=== PATIENT | male | born 1980 | race Caucasian/White ===

== ENCOUNTER 2018-01-20 21:19 | Emergency (ER) | payer SELFPAY ==
[2018-01-20 22:02] LABS: Bilirubin Negative (Negative); Blood, Urine Negative (Negative); Clarity CLEAR (Clear); Glucose, Urine (Dipstick) Negative (Negative); Leukocyte Negative (Negative); Nitrite Negative (Negative); Protein, Urine (Dipstick) Negative (Neg-Trace); Specific Gravity, Urine 1.003 (1.002-1.036); Urobilinogen 0.2 mg/dL (0.2-1.0); pH, Urine 6.5 (5.0-9.0)
[2018-01-20 22:40] LABS: #Basophils 0.1 thou/uL (0.0-0.2); #Eosinphils 0.2 thou/uL (0.0-0.7); #Lymphocytes 1.8 thou/uL (1.20-3.40); #Monocytes 0.4 thou/uL (0.11-0.59); #Neutrophils 1.9 thou/uL (1.40-6.50); %Basophils 2.3 % (0.0-1.0); %Eosinophils 3.7 % (0.0-10.0); %Lymphocytes 41.8 % (21.0-51.0); %Neutrophils 44.2 % (42.0-75.0); Hemoglobin 15.2 g/dL (14.0-18.0); Mean Corpuscular HGB CONC 34.4 g/dL (32.0-36.0); Mean Corpuscular Hemoglobin 31.5 pg (27.0-31.0); Mean Corpuscular Volume 91.5 fL (78.0-98.0); Mean Platelet Volume 7.2 fL (7.4-10.4); Platelet Count 192 thou/uL (130-400); RBC Distribution Width 11.7 % (11.5-14.5); Red Blood Cell (RBC) Count 4.82 mill/uL (4.70-6.10); White Blood Cell (WBC) Count 4.3 thou/uL (4.8-10.8)
[2018-01-20 23:01] LABS: ALT (SGPT) 140 U/L (8-55); AST (SGOT) 119 U/L (5-34); Albumin 4.9 g/dL (3.5-5.0); Alkaline Phosphatase 105 U/L (40-150); Anion Gap 17 mmol/L (10-20); BUN (Urea Nitrogen) 8 mg/dL (8.9-20.6); Bilirubin, Total 0.8 mg/dL (0.2-1.2); Calc. Creatinine Clearance 0 mL/min (70-130); Calcium 9.3 mg/dL (7.8-10.44); Carbon Dioxide 22 mmol/L (22-29); Chloride 104 mmol/L (98-107); Estimated GFR-MDRD Greater than 90; Globulin 3.3 g/dL (2.4-3.5); Glucose 92 mg/dL (70-105); Protein, Total 8.2 g/dL (6.0-8.3); Sodium 139 mmol/L (136-145)
== END 2018-01-20 23:12 | disposition left against medical advice (07) ==
LOC: ERS 21:19
DX: Z53.21 Procedure and treatment not carried out due to patient leaving prior to being seen by health care provider (principal)
CPT/HCPCS: 36415; 80053; 81003; 85025

== ENCOUNTER 2019-11-28 22:29 | Inpatient (IN) | payer SELFPAY ==
[~2019-11-28 22:29] MED LIST: Iopamidol-370 76% 500 ML 1 ML ONE
[2019-11-28] MEDS ORDERED: Morphine 4 MG/ML VIAL ONE (22:46)
[2019-11-28] MEDS ORDERED: Ondansetron PF 4 MG/2 ML Vial ONE (22:46)
[2019-11-28 23:00] LABS: #Basophils 0.1 thou/uL (0.0-0.2); #Lymphocytes 2.4 thou/uL (1.20-3.40); #Monocytes 0.4 thou/uL (0.11-0.59); #Neutrophils 3.9 thou/uL (1.40-6.50); %Basophils 1.8 % (0.0-1.0); %Eosinophils 0.2 % (0.0-10.0); %Lymphocytes 34.6 % (21.0-51.0); %Monocytes 6.1 % (0.0-10.0); %Neutrophils 57.3 % (42.0-75.0); Hemoglobin 16.7 g/dL (14.0-18.0); Mean Corpuscular HGB CONC 36.4 g/dL (32.0-36.0); Mean Corpuscular Volume 85.1 fL (78.0-98.0); Mean Platelet Volume 10.8 fL (7.4-10.4); Platelet Count 149 thou/uL (130-400); RBC Distribution Width 15.9 % (11.5-14.5); Red Blood Cell (RBC) Count 5.38 mill/uL (4.70-6.10); White Blood Cell (WBC) Count 6.8 thou/uL (4.8-10.8)
[2019-11-28 23:19] LABS: Bilirubin Negative (Negative); Blood, Urine Negative (Negative); Clarity Clear (Clear); Glucose, Urine (Dipstick) Normal (Negative); Leukocyte Negative Leu/uL (Negative); Nitrite Negative (Negative); Protein, Urine (Dipstick) Negative (Neg-Trace); Urobilinogen Normal mg/dL (Less than 2)
[2019-11-29] MEDS ORDERED: Morphine 4 MG/ML VIAL ONE (01:09)
[2019-11-29] MEDS ORDERED: Ondansetron ODT 4 MG TAB SL PRN (02:42)
[2019-11-29] MEDS ORDERED: Morphine 2 MG/ML SYRINGE SLOW IVP PRN (02:42)
[2019-11-29] MEDS ORDERED: Ondansetron PF 4 MG/2 ML Vial IVP PRN (02:42)
[2019-11-29] MEDS ORDERED: Sodium Chloride 0.9% 1,000 ML IV SCH ×2 (02:42→03:30)
[2019-11-29] MEDS: Morphine 4 MG/ML VIAL SLOW IVP PRN ×2 (02:58→07:42)
[2019-11-29] MEDS: Sodium Chloride 0.9% 1,000 ML IV SCH ×5 (03:15→23:59)
--- NOTE | 2019-11-29 03:37 | PDOC.HHP ---
Hospitalist HPI - History of Present Illness abdominal pain with nausea and vomiting History of Present Illness: 39M presents to the ED for evaluation of upper abdominal pain with n/v x3 days. Reports drinking 4-6 cans of beer per day since he was 16. Reports history of pancreatitis one other time. Symptoms are similar today for past episode. Denies other past medical history, denies taking medication for any chronic health issues. ED Course: Patient had blood work in the ED which hemolyzed multiple times. They were able to get a CBC but no lipase or comp met due to abundance of fat in the blood. Patient was given 2L of NS and morphine. CT scan of abd/pel was consistent with uncomplicated pancreatitis and he will be admitted to med/surg. Lab will redraw blood at 7am after more fluid given overnight. A stat lipid, glucose has been ordered in the meantime. Hospitalist ROS - Review of Systems Constitutional: denies: fever, chills, sweats, weakness, malaise, other Eyes: denies: pain, vision change, conjunctivae inflammation, eyelid inflammation, redness, other ENT: denies: ear pain, ear discharge, nose pain, nose discharge, nose congestion , mouth pain, mouth swelling, throat pain, throat swelling, other Respiratory: reports: cough Cardiovascular: denies: chest pain, palpitations, orthopnea, paroxysmal noc. dyspnea, edema, light headedness, other Gastrointestinal: reports: nausea, vomiting, abdominal pain Genitourinary: denies: dysuria, frequency, incontinence, hematuria, retention, other Musculoskeletal: denies: neck pain, shoulder pain, arm pain, back pain, hand pain, leg pain, foot pain, other Skin: denies: rash, lesions, kristin, bruising, other Neurological: denies: weakness, numbness, incoordination, change in speech, confusion, seizures, other - Medication Medications: Active Medications Generic Name Dose Route Start Last Admin Trade Name Freq PRN Reason Stop Dose Admin Morphine Sulfate 4 mg 11/29/19 02:42 11/29/19 02:58 Morphine SLOW IVP 11/29/19 13:16 4 mg Q4H PRN Administration Moderate to Severe Pain (6-10) Hospitalist History - Past Medical History Source: patient Cardiac: denies: no pertinent history, AFIB, CAD, CHF, HTN, MO, Syncope, Hyperlipidemia, Mitral valve stenosis, Aortic stenosis, Valve insufficiency, Pulmonary hypertension, Other Pulmonary: denies: no pertinent history, angina, asthma, bronchitis, CVA/TIA/ stroke, congestive heart failure, COPD, deep vein thrombosis, emphysema, heart attack, high cholesterol, HIV/AIDS, hypertension, lung disease, pneumonia, previously intubated, pulmonary embolism, Other FINANCE MANAGER: denies: no pertinent history, Carpal Tunnel Syndrome, CVA, Dementia, Migraine, Peripheral neuropathy, Seizure, TIA, Vertigo, Other Gastrointestinal: reports: Other (pancreatitis) Heme/Onc: denies: no pertinent history, Anemia NOS, B12 deficiency, Cancer, Hemochromatosis, Iron deficiency anemia, Sickle cell disease, Sickle cell trait , Other Psych: reports: Addictions Musculoskeletal: denies: no pertinent history, Chronic low back pain, Bursitis, Osteoarthritis, Other Rheumatologic: denies: no pertinent history, Fibromyalgia, Gout, Rheumatoid arthritis, Vasculitis, Other Infectious Disease: denies: no pertinent history, Bacterial vaginosis, [place], Gonorrhea, HIV, Human papilloma virus, Herpes simplex 1, Herpes simplex 2, Herpes zoster, Other ENT: denies: no pertinent history, Sinusitis, Allergic rhinitis, Other Renal/: denies: no pertinent history, Chronic renal insuff, Acute renal failure, Chronic renal failure, UTI, Benign prostatic enlarg., Hematuria, Other Endocrine: denies: no pertinent history, Diabetes, Hyperthyroidism, Hypothyroidism, Hyperparathyroidism, Osteopenia, Osteoporosis, Other Dermatology: denies: no pertinent history, Eczema, Cellulitis, Psoriasis, Melanoma, Basal cell, Squamous cell, Other - Past Surgical History Past Surgical History: reports: Other (knee surgery and finger surgery) - Family History Family History: reports: no pertinent history - Social History Smoking Status: Smokes 0-10 cigs daily Alcohol: reports: Heavy Drugs: reports: none Living Situation: With Family Activity level: independent ambulation - Exam General Appearance: awake alert Eye: PERRL, anicteric sclera ENT: normocephalic atraumatic, moist mucosa Neck: supple, symmetric Heart: RRR, no murmur Respiratory: CTAB, normal chest expansion Gastrointestinal: normal bowel sounds, tender to palpation, voluntary guarding Extremities: negative: no cyanosis, no clubbing, no edema, 1+ LE edema, 2+ LE edema, clubbing Skin: normal turgor Neurological: cranial nerve grossly intact Musculoskeletal: normal tone Psychiatric: normal affect, A&O x 3 Hospitalist Results - Labs Result Diagrams: 11/28/19 22:24 11/28/19 23:52 Lab results: WBC 6.8 thou/uL (4.8-10.8) 11/28/19 22:24 Hgb 16.7 g/dL (14.0-18.0) 11/28/19 22:24 Hct 45.7 % (42.0-52.0) 11/28/19 22:24 MCV 85.1 fL (78.0-98.0) 11/28/19 22:24 Plt Count 149 thou/uL (130-400) 11/28/19 22:24 Neutrophils % 57.3 % (42.0-75.0) 11/28/19 22:24 Sodium Cancelled 11/28/19 23:52 Potassium Cancelled 11/28/19 23:52 Chloride Cancelled 11/28/19 23:52 Carbon Dioxide Cancelled 11/28/19 23:52 BUN Cancelled 11/28/19 23:52 Creatinine Cancelled 11/28/19 23:52 Glucose Cancelled 11/28/19 23:52 Calcium Cancelled 11/28/19 23:52 Total Bilirubin Cancelled 11/28/19 23:52 AST Cancelled 11/28/19 23:52 ALT Cancelled 11/28/19 23:52 Alkaline Phosphatase Cancelled 11/28/19 23:52 Serum Total Protein Cancelled 11/28/19 23:52 Albumin Cancelled 11/28/19 23:52 Lipase Cancelled 11/28/19 23:52 Urine Ketones Negative mg/dL (Negative) 11/28/19 23:08 Urine Blood Negative (Negative) 11/28/19 23:08 Urine Nitrite Negative (Negative) 11/28/19 23:08 Ur Leukocyte Esterase Negative Thu/uL (Negative) 11/28/19 23:08 Hospitalist H&P A/P - Problem (1) Pancreatitis, alcoholic, acute Code(s): K85.20 - ALCOHOL INDUCED ACUTE PANCREATITIS WITHOUT NECROSIS OR INFCT Status: Acute (2) Fatty liver Code(s): K76.0 - FATTY (CHANGE OF) LIVER, NOT ELSEWHERE CLASSIFIED Status: Chronic (3) Alcohol abuse Code(s): F10.10 - ALCOHOL ABUSE, UNCOMPLICATED Status: Chronic - Plan Plan: NS @250ml/hr; morphine as needed for pain Will attempt lab work again in several hours after more fluids Have ordered glucose and lipids NPO DVT and PUD prevention Repeat labs Case discussed with Dr. Aguiar who agrees with plan.
[2019-11-29] MEDS ORDERED: Diazepam 10 MG/2 ML SYRINGE IVP PRN (04:10)
[2019-11-29 05:23] LABS: #Basophils 0.1 thou/uL (0.0-0.2); #Lymphocytes 1.7 thou/uL (1.20-3.40); #Monocytes 0.5 thou/uL (0.11-0.59); #Neutrophils 5.3 thou/uL (1.40-6.50); %Basophils 1.7 % (0.0-1.0); %Eosinophils 0.4 % (0.0-10.0); %Lymphocytes 22.3 % (21.0-51.0); %Neutrophils 68.6 % (42.0-75.0); Mean Corpuscular HGB CONC 38.1 g/dL (32.0-36.0); Mean Corpuscular Hemoglobin 32.8 pg (27.0-31.0); Mean Corpuscular Volume 86.1 fL (78.0-98.0); Mean Platelet Volume 14.1 fL (7.4-10.4); Platelet Count 147 thou/uL (130-400); RBC Distribution Width 16.3 % (11.5-14.5); Red Blood Cell (RBC) Count 4.58 mill/uL (4.70-6.10); White Blood Cell (WBC) Count 7.7 thou/uL (4.8-10.8)
--- NOTE | 2019-11-29 06:20 | CT ---
CT ABDOMEN AND PELVIS: 11/28/2019 PROVIDED CLINICAL HISTORY: Abdominal pain. FINDINGS: The visualized lung bases are free of significant opacity. There is diffuse fatty infiltration of the liver. There is enlargement of the pancreatic tail with surrounding fat stranding and noncircumscribed fluid . There is no evidence for nonenhancing pancreatic tissue. No evidence for a focal fluid collection. The kidneys, spleen and adrenal glands appear unremarkable. There is no bowel dilatation, additional inflammatory fat stranding, free intraperitoneal fluid or fr ee intraperitoneal air apparent. The regional major vascular structures appear unremarkable. The osseous structures demonstrate no concerning lytic or blastic lesions. A bone island is seen invo lving the left iliac bone. IMPRESSION: 1. Findings compatible with acute uncomplicated pancreatitis. 2. Fatty infiltration of the liver. POS: CHET
[2019-11-29 06:50] VITALS: BMI 28.8
[2019-11-29] MEDS ORDERED: Fenofibrate Nanocrystallized 145 MG TAB PO SCH (09:30)
--- NOTE | 2019-11-29 09:48 | PDOC.HOSPP ---
- Subjective Encounter Date: 11/29/19 Subjective: The patient still complaining of severe abdominal pain that is localized to the epigastric region. Several attempts to obtain labs including venous and arterial blood were all hemolyzed due to the high content of the lipids. - Objective Vital Signs & Weight: Vital Signs (12 hours) Temp Pulse Resp BP BP Pulse Ox 11/29/19 07:30 98.9 F 70 12 114/65 97 11/29/19 04:05 98.8 F 70 18 124/80 97 11/29/19 02:30 97.7 F 95 18 126/93 H 126/93 H 97 Weight Weight 178 lb 9.191 oz I&O: 11/28/19 11/29/19 11/30/19 06:59 06:59 06:59 Intake Total 2000 1874 Balance 2000 1874 Result Diagrams: 11/29/19 04:55 11/28/19 23:52 Additional Labs: Accuchecks 11/29/19 07:34 POC Glucose 86 Hospitalist ROS - Medication Medications: Active Medications Generic Name Dose Route Start Last Admin Trade Name Marcioq PRN Reason Stop Dose Admin Sodium Chloride 1,000 mls @ 250 mls/hr 11/29/19 03:15 11/29/19 03:15 Normal Saline 0.9% IV 11/29/19 11:14 1,000 mls .Q4H YOLANDA Administration - Exam General Appearance: awake alert ENT: normocephalic atraumatic Neck: supple Heart: RRR Respiratory: normal chest expansion, no tachypnea Gastrointestinal: soft, non-distended, normal bowel sounds, tender to palpation Hosp A/P (1) Pancreatitis, alcoholic, acute Code(s): K85.20 - ALCOHOL INDUCED ACUTE PANCREATITIS WITHOUT NECROSIS OR INFCT Status: Acute (2) Alcohol abuse Code(s): F10.10 - ALCOHOL ABUSE, UNCOMPLICATED Status: Chronic (3) Fatty liver Code(s): K76.0 - FATTY (CHANGE OF) LIVER, NOT ELSEWHERE CLASSIFIED Status: Chronic - Plan Acute pancreatitis likely due to alcohol abuse and possible hyper triglyceridemia. Pancreatitis was seen on CT scan. Chemistry panel could not be obtained due to multiple hemolytic samples related to increased lipids in the blood. Continue IV hydration and administer banana bag. Diazepam as needed for CIWA score greater than 8. Consult gastroenterology. Clear liquid diet. Protonix IV for possible alcoholic gastritis.
[2019-11-29] MEDS ORDERED: Scopolamine 1.5 mg/72 hour Patch TD SCH (10:00)
[2019-11-29] MEDS: Famotidine/PF 20 mg/2ml Vial SLOW IVP SCH ×2 (10:14→19:32)
[2019-11-29] MEDS: Multivitamins, Adult 10 ML, Folic Acid 1 MG, Thiamine HCl 100 MG in Dextrose 5 %-0.45 %... IV SCH (10:15)
[2019-11-29] MEDS: Morphine 2 MG/ML SYRINGE SLOW IVP PRN ×3 (10:46→19:33)
--- NOTE | 2019-11-29 21:48 | CON ---
DATE OF CONSULTATION: 11/29/2019 REASON FOR CONSULTATION: Acute uncomplicated pancreatitis, hypertriglyceridemia. CONSULTING PROVIDER: Ana Paula Ware MD HISTORY OF PRESENT ILLNESS: The patient is a 39-year-old male with a past medical history of significant alcohol abuse and prior episode of pancreatitis, presented with complaints of midepigastric abdominal pain. He states that he was in his usual state of health until approximately 3 days ago when he had the acute onset of midepigastric abdominal pain that would radiate to the left upper quadrant and migrate around his left flank to his mid back. This pain was characterized as a pressure type sensation and reached a severity of 9/10. When compared to his pain that he experienced during his prior bout of pancreatitis, he stated that this pain was very similar. This pain was worse with actions increasing intraabdominal pressure (sneezing, burping, sitting up), increased physical activity, and the act of defecation/having a bowel movement. The pain was better immediately after having a bowel movement and with the use of pain medications received thus far. Upon further questioning the patient, he states that he was drinking approximately 10 to 20 beers daily prior to admission and has been doing so since he was approximately 15 years old, although drinking was somewhat less when he was younger. He also states that his last bout of pancreatitis was approximately 7 to 8 months ago, at which point, the patient was treated at either [facility] or at the [facility]. Associated symptoms with his increased midepigastric abdominal pain included nausea without vomiting, bloating, generalized weakness, diaphoresis, and possible hematochezia. However, the patient denies fevers, chills, melena, dysphagia, or odynophagia. REVIEW OF SYSTEMS: A 10-category review of systems was obtained with all responses negative except for the pertinent positives as listed in HPI. PAST MEDICAL HISTORY: As per HPI. PAST SURGICAL HISTORY: Knee surgery and finger surgery. FAMILY HISTORY: Denies any GI malignancies or chronic liver disease. SOCIAL HISTORY: Denies any illicit drug use, but smokes approximately 1/4 to 1/2 pack per day and drinks anywhere between 10 and 20 beers per day. OUTPATIENT MEDICATIONS: None. ALLERGIES: NO KNOWN DRUG ALLERGIES. PHYSICAL EXAMINATION: VITAL SIGNS: Temperature 99.5, pulse 80, blood pressure 136/88, respiratory rate 18, and saturating 99% on room air. GENERAL: The patient is lying in bed, in no acute distress. Alert and oriented x4. HEENT: Normocephalic and atraumatic. NECK: Supple. No JVD or scleral icterus noted. CARDIOVASCULAR: Regular rate and rhythm with no discernible murmurs, gallops, or rubs. RESPIRATORY: Clear to auscultation bilaterally with no discernible wheezes or rales. ABDOMEN: Normoactive bowel sounds. Soft. Mild abdominal distention. Tenderness to palpation in the midepigastric, left upper quadrant, and periumbilical regions. EXTREMITIES: No cyanosis, clubbing, or edema. LABORATORY DATA: CBC with a white blood cell count of 7.7, hemoglobin 15, hematocrit 39.5, platelets 147. Attempts at obtaining a serum chemistry have been unsuccessful thus far due to the increased amount of triglycerides. Urinalysis was normal. IMAGING DATA: CT of the abdomen and pelvis was obtained on November 28, 2019, which showed diffuse fatty infiltration of the liver. There was also enlargement of the pancreatic tail and surrounding fat stranding with non-circumscribed fluid. However, there was no evidence of non-enhancing pancreatic tissue and no evidence of focal fluid collection. There was no bowel dilation, additional inflammatory fat stranding around the large and small bowel or free intraperitoneal fluid or air. All the findings compatible with acute uncomplicated pancreatitis in addition to hepatic steatosis. ASSESSMENT AND PLAN: The patient is a 39-year-old male with past medical history of alcohol abuse, and prior bout of pancreatitis presenting with acute uncomplicated pancreatitis and hypertriglyceridemia. Acute uncomplicated pancreatitis: The patient is presenting with a 3-day history of increasing midepigastric abdominal pain radiating to the left upper quadrant and mid back in addition to imaging findings all consistent with acute uncomplicated pancreatitis. However, chemistries thus far have been unrevealing due to the fact that his triglyceride level has been too high in order to evaluate for any other elements of his chemistry. At this time, the patient endorses a significant alcohol abuse history, drinking approximately 10 to 20 beers per day, which could potentially contribute to an acute episode of pancreatitis, however, significant hypertriglyceridemia of over 1000 could also contribute to acute uncomplicated pancreatitis. RECOMMENDATIONS: 1. Would continue with aggressive IV fluid resuscitation with the patient receiving 250 mL/h for first 8 hours and then decreasing to 200 mL for the next 16 hours. At that point, I would consider decreasing the IV fluids to 125 mL/h in addition to restarting the patient on a clear liquid diet. 2. Would attempt to obtain a repeat chemistry in the morning. If unable to do so due to hypertriglyceridemia, then I would transfer the patient to the [facility] for placement on an insulin drip. 3. Pain control per primary team. 4. Continue the patient on n.p.o. status. 5. Would strongly consider placing the patient on a statin in the near future for hypertriglyceridemia/hypercholesterolemia. We will continue to follow. Please call with any questions. Job ID: [id number]
[2019-11-29 23:22] LABS: Potassium 4.3 mmol/L (3.5-5.1); Sodium 136 mmol/L (136-145)
[2019-11-29 23:23] LABS: BUN (Urea Nitrogen) 4 mg/dL (8.9-20.6); Calc. Creatinine Clearance 161 mL/min (70-130); Calcium 7.4 mg/dL (7.8-10.44); Carbon Dioxide 23 mmol/L (22-29); Chloride 101 mmol/L (98-107); Estimated GFR-MDRD Greater than 90; Glucose 103 mg/dL (70-105)
[2019-11-29 23:24] LABS: ALT (SGPT) 56 U/L (8-55); AST (SGOT) 108 U/L (5-34); Alkaline Phosphatase 288 U/L (40-110); Bilirubin, Total 4.1 mg/dL (0.2-1.2); Cholesterol 459 mg/dL (< 200 Desired)
[2019-11-29 23:25] LABS: HDL Cholesterol Less than 8 mg/dL (>60 Neg Risk); Lipase 263 U/L (8-78); Triglycerides 2691 mg/dL (Less than 150)
[2019-11-29 23:27] LABS: Anion Gap 16 mmol/L (10-20)
[2019-11-30] MEDS: Morphine 2 MG/ML SYRINGE SLOW IVP PRN ×3 (02:41→19:20)
[2019-11-30] MEDS: Sodium Chloride 0.9% 1,000 ML IV SCH ×4 (05:38→20:28)
[2019-11-30] MEDS: Pantoprazole 40 MG VIAL IVP SCH (08:38)
[2019-11-30] MEDS: Fenofibrate 48 MG TAB PO SCH (08:38)
[2019-11-30] MEDS: Famotidine/PF 20 mg/2ml Vial SLOW IVP SCH ×2 (08:38→20:28)
[2019-11-30 10:53] LABS: ALT (SGPT) 72 U/L (8-55); AST (SGOT) 123 U/L (5-34); Albumin 3.1 g/dL (3.5-5.0); Alkaline Phosphatase 265 U/L (40-110); Anion Gap 11 mmol/L (10-20); BUN (Urea Nitrogen) Less than 4 mg/dL (8.9-20.6); Bilirubin, Total 4.5 mg/dL (0.2-1.2); Calc. Creatinine Clearance 150 mL/min (70-130); Calcium 8.2 mg/dL (7.8-10.44); Carbon Dioxide 25 mmol/L (22-29); Chloride 98 mmol/L (98-107); Estimated GFR-MDRD Greater than 90; Globulin 3.5 g/dL (2.4-3.5); Glucose 103 mg/dL (70-105); Lipase 178 U/L (8-78); Magnesium 1.7 mg/dL (1.6-2.6); Phosphorus 1.6 mg/dL (2.3-4.7); Potassium 3.7 mmol/L (3.5-5.1); Protein, Total 6.6 g/dL (6.0-8.3); Sodium 130 mmol/L (136-145); Triglycerides 775 mg/dL (Less than 150)
[2019-11-30] MEDS: Multivitamins, Adult 10 ML, Folic Acid 1 MG, Thiamine HCl 100 MG in Dextrose 5 %-0.45 %... IV SCH (11:03)
[2019-11-30] MEDS ORDERED: Potassium Phosphate 15 MMOL in Sodium Chloride 0.9% 250 ML 250 ML IVPB SCH (11:15)
[2019-11-30 11:32] LABS: #Eosinphils 0.1 thou/uL (0.0-0.7); #Lymphocytes 1.4 thou/uL (1.20-3.40); #Monocytes 0.5 thou/uL (0.11-0.59); #Neutrophils 8.7 thou/uL (1.40-6.50); %Basophils 0.3 % (0.0-1.0); %Eosinophils 0.8 % (0.0-10.0); %Lymphocytes 13.1 % (21.0-51.0); %Neutrophils 80.8 % (42.0-75.0); Hemoglobin 13.9 g/dL (14.0-18.0); Mean Corpuscular HGB CONC 33.9 g/dL (32.0-36.0); Mean Corpuscular Hemoglobin 29.8 pg (27.0-31.0); Mean Corpuscular Volume 87.9 fL (78.0-98.0); Mean Platelet Volume 9.7 fL (7.4-10.4); Platelet Count 77 thou/uL (130-400); RBC Distribution Width 15.4 % (11.5-14.5); Red Blood Cell (RBC) Count 4.68 mill/uL (4.70-6.10); White Blood Cell (WBC) Count 10.8 thou/uL (4.8-10.8)
[2019-11-30 11:33] LABS: MDiff Complete? YES; Platelet Morphology Comment Appears Decreased; RBC Morphology Normal
[2019-11-30] MEDS: Acetaminophen 325 MG TAB PO PRN ×2 (12:13)
[2019-11-30] MEDS ORDERED: cloNIDine 0.1 MG TAB PO PRN (12:57)
[2019-11-30] MEDS ORDERED: Lorazepam 1 MG TAB PO PRN (12:57)
--- NOTE | 2019-11-30 12:59 | PDOC.HOSPP ---
- Subjective Encounter Date: 11/30/19 Encounter Time: 12:59 Subjective: Patient seen and examined for acute pancreatitis. Abd pain improving. No nausea. No new complaints. No overnight events - Objective Vital Signs & Weight: Vital Signs (12 hours) Temp Pulse Resp BP BP Pulse Ox 11/30/19 11:30 99.7 F H 84 14 127/79 97 11/30/19 07:15 99.5 F 82 18 124/74 97 11/30/19 05:48 99.7 F H 81 16 134/86 100 Weight Weight 178 lb 9.191 oz I&O: 11/29/19 11/30/19 12/01/19 06:59 06:59 06:59 Intake Total 2000 8877 Output Total 2250 Balance 2000 0973 Result Diagrams: 11/30/19 11:04 11/30/19 10:07 Additional Labs: Laboratory Tests 11/29/19 11/30/19 21:32 10:07 Phosphorus 1.6 L Magnesium 1.7 Total Bilirubin 4.5 H AST 123 H ALT 72 H Alkaline Phosphatase 265 H Triglycerides 2691 H 775 H Cholesterol 459 H Lipase 178 H Radiology Reviewed by me: Yes (CT abd - pancreatitis) Hospitalist ROS - Review of Systems Respiratory: denies: cough, dry, shortness of breath, hemoptysis, SOB with excertion, pleuritic pain, sputum, wheezing, other Cardiovascular: denies: chest pain, palpitations, orthopnea, paroxysmal noc. dyspnea, edema, light headedness, other Gastrointestinal: denies: nausea, vomiting, abdominal pain, diarrhea, constipation, melena, hematochezia, other - Medication Medications: Active Medications Generic Name Dose Route Start Last Admin Trade Name Freq PRN Reason Stop Dose Admin Acetaminophen 650 mg 11/29/19 02:53 11/30/19 12:13 Tylenol PO 650 mg Q4H PRN Administration Headache/Fever/Mild Pain (1-3) Famotidine 20 mg 11/29/19 09:00 11/30/19 08:38 Pepcid SLOW IVP 20 mg Q12HR YOLANDA Administration Fenofibrate 48 mg 11/30/19 09:00 11/30/19 08:38 Tricor PO 48 mg DAILY YOLANDA Administration Multivitamins 10 ml/ Folic 1,011.2 mls @ 250 mls/hr 11/29/19 10:00 11/30/19 11:03 Acid 1 mg/ Thiamine HCl 100 mg IV 1,011.2 mls / Dextrose/Sodium Chloride Q24HR YOLANDA Administration Morphine Sulfate 3 mg 11/29/19 09:43 11/30/19 08:39 Morphine SLOW IVP 3 mg Q3H PRN Administration Severe Pain (7-10) Pantoprazole Sodium 40 mg 11/30/19 09:00 11/30/19 08:38 Protonix IVP 40 mg DAILY YOLANDA Administration - Exam General Appearance: NAD Heart: RRR, no gallops, no rubs, normal peripheral pulses Respiratory: no wheezes, no rales, no ronchi Gastrointestinal: soft, normal bowel sounds, no guarding, no rigidity Gastrointestinal - other findings: mild epigastric tenderness on deep palpations Neurological: no new deficit Hosp A/P - Plan DVT proph w/lovenox, DVT proph w/SCDs SIRS due to Acute uncomplicated Pancreatitis - due to alcohol/ hypertriglyceridemia (POA) Chronic alcohol abuse Hyponatremia Hypokalemia Hypomagnesemia Hypophosphatemia Thrombocytopenia Fatty liver PLAN: Reduce IVF to 150 ml/hr Cont clear liqd Cont Fibrates AM labs Replace electrolytes Monitor Platelets Case d/w Dr Perera
--- NOTE | 2019-11-30 13:16 | PRG ---
DATE OF SERVICE: 11/30/2019 REASON FOR CONSULTATION: Acute uncomplicated pancreatitis, hypertriglyceridemia. SUBJECTIVE: Today, the patient states that his abdominal pain is improved when compared to yesterday and did not have any acute events or problems overnight. He was able to tolerate a clear liquid diet without any significant increase in his abdominal pain. Currently, he denies any nausea, vomiting, fevers, chills, hematemesis, melena, or hematochezia. OBJECTIVE: VITAL SIGNS: Temperature 99.7, pulse 84, blood pressure 127/79, respiratory rate 14, and saturating 97% on room air. GENERAL: The patient is lying in bed, in no acute distress. Alert and oriented x4. CARDIOVASCULAR: Regular rate and rhythm. RESPIRATORY: Clear to auscultation bilaterally. ABDOMEN: Normoactive bowel sounds. Soft. No abdominal distention. Tenderness to palpation in the midepigastric region. EXTREMITIES: No cyanosis, clubbing, or edema. LABORATORY DATA: CBC with a white blood cell count of 7.7, hemoglobin 15, hematocrit 39.5, and platelets 147. Chemistry with a sodium of 136, potassium 4.3, chloride 101, CO2 of 23, BUN 4, creatinine 0.72, glucose 103, AST 108, ALT 56, alkaline phosphatase 288, total bilirubin 4.1. Triglyceride level late last night was 2691. However, repeat labs this morning showed a triglyceride level of 775, lipase level 178. IMAGING DATA: No current GI imaging is available for review. ASSESSMENT AND PLAN: The patient is a 39-year-old male with past medical history of alcohol abuse and a prior bout of pancreatitis presenting with acute uncomplicated pancreatitis with hypertriglyceridemia. Acute uncomplicated pancreatitis. The patient initially presented with a 3-day history of increased midepigastric abdominal pain with imaging consistent with acute pancreatitis on admission. Chemistries obtained on admission, however, were unable to calculate a lipase due to significant hypertriglyceridemia. However, with the administration of high volume IV fluids, his chemistries were now able to be evaluated with a triglyceride level of 2691 last night and 775 today. At this time, the origin of his pancreatitis could be due to either the hypertriglyceridemia or the chronic alcohol abuse, where the patient was drinking approximately 10 to 20 beers per day. RECOMMENDATIONS: 1. Would decrease IV fluid resuscitation to approximately 125 to 150 mL/h given the amount of fluid that he has received over the last 24 hours. 2. We will start the patient on fenofibrate (as you have already done) for treatment of his hypertriglyceridemia. At this time, the patient does not require an insulin drip. 3. Pain control per primary team. 4. Would advance the patient's diet today and assess for response. 5. With the administration of fenofibrate, if a statin is needed in the future, the side effect should be minimized. We will continue to follow. Please call with any questions. Job ID: [id number]
[2019-11-30] MEDS ORDERED: Magnesium 2 GM/50 ML 2 GM in Premix Bag 1 BAG IVPB SCH (13:45)
[2019-11-30] MEDS: Folic Acid 1 MG TAB PO SCH (14:55)
[2019-11-30] MEDS: Thiamine 100 MG TAB PO SCH (14:55)
[2019-11-30] MEDS ORDERED: Enoxaparin Sodium 40 MG/0.4 ML SYRINGE SC SCH (21:00)
[2019-12-01] MEDS: Sodium Chloride 0.9% 1,000 ML IV SCH ×4 (03:32→21:47)
[2019-12-01] MEDS: Acetaminophen 325 MG TAB PO PRN (03:32)
[2019-12-01 05:59] LABS: INR-International Normal Ratio 1.1; PTT 35.2 sec (22.9-36.1); Prothrombin Time 13.9 sec (12.0-14.7)
[2019-12-01 06:00] LABS: #Basophils 0.1 thou/uL (0.0-0.2); #Eosinphils 0.1 thou/uL (0.0-0.7); #Lymphocytes 1.6 thou/uL (1.20-3.40); #Monocytes 0.6 thou/uL (0.11-0.59); %Basophils 0.7 % (0.0-1.0); %Eosinophils 1.5 % (0.0-10.0); %Lymphocytes 17.4 % (21.0-51.0); %Monocytes 6.2 % (0.0-10.0); %Neutrophils 74.2 % (42.0-75.0); Mean Corpuscular HGB CONC 32.6 g/dL (32.0-36.0); Mean Corpuscular Hemoglobin 29.4 pg (27.0-31.0); Mean Corpuscular Volume 90.1 fL (78.0-98.0); Mean Platelet Volume 9.6 fL (7.4-10.4); Platelet Count 110 thou/uL (130-400); RBC Distribution Width 15.5 % (11.5-14.5); Red Blood Cell (RBC) Count 4.41 mill/uL (4.70-6.10); White Blood Cell (WBC) Count 9.5 thou/uL (4.8-10.8)
[2019-12-01 07:06] LABS: ALT (SGPT) 87 U/L (8-55); AST (SGOT) 152 U/L (5-34); Albumin 3.2 g/dL (3.5-5.0); Alkaline Phosphatase 239 U/L (40-110); Anion Gap 13 mmol/L (10-20); BUN (Urea Nitrogen) 4 mg/dL (8.9-20.6); Bilirubin, Total 4.4 mg/dL (0.2-1.2); Calc. Creatinine Clearance 149 mL/min (70-130); Calcium 8.4 mg/dL (7.8-10.44); Carbon Dioxide 26 mmol/L (22-29); Chloride 99 mmol/L (98-107); Estimated GFR-MDRD Greater than 90; Globulin 3.7 g/dL (2.4-3.5); Glucose 73 mg/dL (70-105); Lipase 151 U/L (8-78); Magnesium 2.2 mg/dL (1.6-2.6); Potassium 3.7 mmol/L (3.5-5.1); Protein, Total 6.9 g/dL (6.0-8.3); Sodium 134 mmol/L (136-145)
[2019-12-01 07:10] LABS: Phosphorus 1.8 mg/dL (2.3-4.7)
[2019-12-01] MEDS ORDERED: Potassium Phosphate 15 MMOL in Sodium Chloride 0.9% 250 ML 250 ML IVPB SCH (07:45)
[2019-12-01] MEDS: Fenofibrate 48 MG TAB PO SCH (09:03)
[2019-12-01] MEDS: Multivit, Therapeutic 1 TAB PO SCH (09:03)
[2019-12-01] MEDS: K-Phos Neutral 250 MG TAB PO SCH ×3 (09:04→17:12)
[2019-12-01] MEDS: Pantoprazole 40 MG VIAL IVP SCH (09:05)
[2019-12-01] MEDS: Thiamine 100 MG TAB PO SCH (13:52)
[2019-12-01] MEDS: Folic Acid 1 MG TAB PO SCH (13:52)
--- NOTE | 2019-12-01 16:48 | PRG ---
DATE OF SERVICE: 12/01/2019 SUBJECTIVE: The patient feels much better today. He is having minimal pain. Tolerating fluids without nausea or vomiting. OBJECTIVE: VITAL SIGNS: Temperature 98.1, blood pressure 120/76, pulse of 70. GENERAL: He is alert, conversant, does not appear in any distress. HEENT: Exam shows anicteric sclerae. CV: Shows S1 and S2. Regular rate and rhythm. CHEST: Shows breath sounds. ABDOMEN: Soft. Essentially nontender. He has active bowel sounds. EXTREMITIES: Exam shows no edema. LABORATORY DATA: WBCs 9.5, hemoglobin 13.0, platelet count of 110. Electrolytes within normal range. Creatinine is 0.78. Bilirubin 4.4, AST of 152, ALT of 87, alkaline phosphatase 239. His triglyceride is 334. Serum lipase down to 151. ASSESSMENT: 1. Uncomplicated pancreatitis, likely related to hypertriglyceridemia. Clinically and biochemically resolving. The patient does not have any complicated finding on CT. 2. Alcoholic hepatitis. RECOMMENDATIONS: 1. Advance diet to full liquids tonight, then to regular low-fat diet in a.m., if tolerated, can be discharge. 2. Alcohol abstinence has been discussed with the patient. Job ID: [id number]
[2019-12-02] MEDS: Acetaminophen 325 MG TAB PO PRN (02:10)
[2019-12-02] MEDS: Sodium Chloride 0.9% 1,000 ML IV SCH (05:42)
[2019-12-02 06:10] LABS: #Basophils 0.1 thou/uL (0.0-0.2); #Eosinphils 0.2 thou/uL (0.0-0.7); #Lymphocytes 2.4 thou/uL (1.20-3.40); #Monocytes 0.8 thou/uL (0.11-0.59); #Neutrophils 5.2 thou/uL (1.40-6.50); %Basophils 0.7 % (0.0-1.0); %Eosinophils 1.8 % (0.0-10.0); %Lymphocytes 28.4 % (21.0-51.0); %Neutrophils 60.2 % (42.0-75.0); Mean Corpuscular HGB CONC 31.7 g/dL (32.0-36.0); Mean Corpuscular Hemoglobin 28.7 pg (27.0-31.0); Mean Corpuscular Volume 90.6 fL (78.0-98.0); Mean Platelet Volume 8.2 fL (7.4-10.4); Platelet Count 141 thou/uL (130-400); RBC Distribution Width 15.4 % (11.5-14.5); Red Blood Cell (RBC) Count 4.17 mill/uL (4.70-6.10); White Blood Cell (WBC) Count 8.6 thou/uL (4.8-10.8)
[2019-12-02 06:29] LABS: ALT (SGPT) 97 U/L (8-55); AST (SGOT) 136 U/L (5-34); Albumin 3.3 g/dL (3.5-5.0); Alkaline Phosphatase 213 U/L (40-110); Anion Gap 10 mmol/L (10-20); BUN (Urea Nitrogen) 5 mg/dL (8.9-20.6); Bilirubin, Total 3.9 mg/dL (0.2-1.2); Calc. Creatinine Clearance 152 mL/min (70-130); Calcium 8.7 mg/dL (7.8-10.44); Carbon Dioxide 26 mmol/L (22-29); Chloride 103 mmol/L (98-107); Estimated GFR-MDRD Greater than 90; Globulin 3.7 g/dL (2.4-3.5); Glucose 83 mg/dL (70-105); Lipase 206 U/L (8-78); Magnesium 2.2 mg/dL (1.6-2.6); Phosphorus 2.1 mg/dL (2.3-4.7); Potassium 3.7 mmol/L (3.5-5.1); Sodium 135 mmol/L (136-145)
[2019-12-02] MEDS: Fenofibrate 48 MG TAB PO SCH (08:36)
[2019-12-02] MEDS: Pantoprazole 40 MG VIAL IVP SCH (08:36)
[2019-12-02] MEDS: Multivit, Therapeutic 1 TAB PO SCH (08:36)
[2019-12-02] MEDS: K-Phos Neutral 250 MG TAB PO SCH ×2 (08:36→12:04)
--- NOTE | 2019-12-02 10:33 | PDOC.HOSPP ---
- Subjective Encounter Date: 12/01/19 Encounter Time: 17:00 Subjective: Patient seen and examined for acute pancreatitis. Abd pain improving. Tolerating clear liqd diet. No new complaints. No overnight events - Objective Vital Signs & Weight: Vital Signs (12 hours) Temp Pulse Resp BP BP BP BP 12/02/19 08:04 98.1 F 58 L 14 121/75 12/02/19 05:39 87 125/85 12/02/19 05:37 72 121/81 120/71 12/02/19 03:24 99.1 F 67 16 122/79 12/01/19 23:24 99.0 F 72 16 137/84 Pulse Ox 12/02/19 08:04 97 12/02/19 05:39 12/02/19 05:37 12/02/19 03:24 96 12/01/19 23:24 97 Weight Weight 178 lb 9.191 oz I&O: 12/01/19 12/02/19 12/03/19 06:59 06:59 06:59 Intake Total 3940 5570 Output Total 2375 800 Balance 1565 4770 Result Diagrams: 12/02/19 05:52 12/02/19 05:52 Hospitalist ROS - Review of Systems Respiratory: denies: cough, dry, shortness of breath, hemoptysis, SOB with excertion, pleuritic pain, sputum, wheezing, other Cardiovascular: denies: chest pain, palpitations, orthopnea, paroxysmal noc. dyspnea, edema, light headedness, other - Medication Medications: Active Medications Generic Name Dose Route Start Last Admin Trade Name Freq PRN Reason Stop Dose Admin Acetaminophen 650 mg 11/29/19 02:53 12/02/19 02:10 Tylenol PO 650 mg Q4H PRN Administration Headache/Fever/Mild Pain (1-3) Fenofibrate 48 mg 11/30/19 09:00 12/02/19 08:36 Tricor PO 48 mg DAILY YOLANDA Administration Folic Acid 1 mg 11/30/19 14:00 12/01/19 13:52 Folvite PO 1 mg 1400 YOLANDA Administration Sodium Chloride 1,000 mls @ 150 mls/hr 11/30/19 12:56 12/02/19 05:42 Normal Saline 0.9% IV 1,000 mls .[id number] YOLANDA Administration Morphine Sulfate 3 mg 11/29/19 09:43 11/30/19 19:20 Morphine SLOW IVP 3 mg Q3H PRN Administration Severe Pain (7-10) Multivitamins 1 tab 12/01/19 09:00 12/02/19 08:36 Theragran PO 1 tab DAILY YOLANDA Administration Pantoprazole Sodium 40 mg 11/30/19 09:00 12/02/19 08:36 Protonix IVP Not Given DAILY YOLANDA Pantoprazole Sodium 40 mg 12/01/19 09:00 12/02/19 08:36 Protonix PO 40 mg DAILY YOLANDA Administration Phosphorus 250 mg 12/01/19 08:00 12/02/19 08:36 Kphos Neutral PO 250 mg TID-WM YOLANDA Administration Thiamine HCl 100 mg 11/30/19 14:00 12/01/19 13:52 Thiamine PO 100 mg 1400 YOLANDA Administration - Exam General Appearance: NAD Heart: RRR, no gallops Respiratory: no wheezes, no rales Gastrointestinal: soft, normal bowel sounds, no guarding, no rigidity Hosp A/P - Plan DVT proph w/SCDs SIRS due to Acute uncomplicated Pancreatitis - due to alcohol/ hypertriglyceridemia (POA) Alcoholic hepatitis - POA Chronic alcohol abuse Hyponatremia Hypokalemia Hypomagnesemia Hypophosphatemia Thrombocytopenia Fatty liver PLAN: Cont IVF Advance to full liqd diet Cont Fibrates AM labs Replace phosphorus Cont other meds as above
[2019-12-02 11:52] VITALS: BP 116/78; TEMP 98.5
[2019-12-02] MEDS ORDERED: K-Phos Neutral 250 MG TAB PO SCH (12:00)
[2019-12-02] MEDS: Thiamine 100 MG TAB PO SCH (13:25)
[2019-12-02] MEDS: Folic Acid 1 MG TAB PO SCH (13:25)
--- NOTE | 2019-12-02 16:01 | DIS ---
DATE OF ADMISSION: 11/29/2019 DATE OF DISCHARGE: 12/02/2019 DISCHARGE DISPOSITION: Home. Follow up with [facility] in 1 week. Follow up with Gastroenterology clinic as scheduled. DISCHARGE MEDICATIONS: 1. Fenofibrate 48 mg daily. 2. Multivitamin thiamine folic acid daily. Patient was seen and examined on the day of discharge. Denies any new complaints. DISCHARGE PHYSICAL EXAMINATION: VITAL SIGNS: Temperature 98.5, pulse rate of 81, respiration of 14, blood pressure of 116/78, O2 saturation of 95% on room air. ABDOMEN: The patient denies any abdominal discomfort at this time. BRIEF HOSPITAL COURSE: The patient is a 39-year-old male with chronic alcohol abuse, presented to the emergency room with nausea, vomiting, and abdominal discomfort on 3 days' duration. His workup was consistent with acute pancreatitis. His lipase on admission was 263 with triglyceride of 2691. His LFTs were also abnormal with total bilirubin 4.1, AST 108, ALT 56, and alkaline phosphatase 288. He was made n.p.o. and was started on IV hydration along with fenofibrate. His triglyceride improved to 334. He also had electrolyte abnormalities which were replaced. His diet has been gradually advanced to full liquid diet. The patient has been ambulating in the hallway. He has been cleared by gastroenterology service for discharge. FINAL DIAGNOSES: 1. Systemic inflammatory response syndrome secondary to acute uncomplicated pancreatitis probably due to alcohol with hypertriglyceridemia. 2. Alcoholic hepatitis. A repeat LFTs after 1 week is recommended. Primary care physician advised to follow. 3. Chronic alcohol abuse. 4. Multiple electrolyte abnormalities including hypokalemia, hypomagnesemia, hypophosphatemia, and thrombocytopenia. 5. Fatty liver. The patient understands the above plan of care. Job ID: [id number]
== END 2019-12-02 14:25 | disposition home or self-care (01) | DRG 439 ==
LOC: ERS 22:29 → SURG A 11-29 01:19 → OBSVTOIN 11-29 01:19
PROVIDERS: ADMIT Internal Medicine; ATTEND Internal Medicine
DX: K85.20 Alcohol induced acute pancreatitis without necrosis or infection (principal); R65.10 Systemic inflammatory response syndrome (SIRS) of non-infectious origin without acute organ dysfunction; E87.1 Hypo-osmolality and hyponatremia; K70.10 Alcoholic hepatitis without ascites; E78.1 Pure hyperglyceridemia; G40.A09 Absence epileptic syndrome, not intractable, without status epilepticus; F10.10 Alcohol abuse, uncomplicated; E87.6 Hypokalemia; E83.42 Hypomagnesemia; E83.39 Other disorders of phosphorus metabolism; D69.6 Thrombocytopenia, unspecified; K76.0 Fatty (change of) liver, not elsewhere classified; F17.210 Nicotine dependence, cigarettes, uncomplicated
CPT/HCPCS: 36415; 36416; 74177; 80053; 80061; 81003; 83690; 83735; 84100; 84478; 85025; 85610; 85730; 96361; 96365; 96366; 96374; 96375; 96376; C9113; G0378; J2270; J2405; J3411; J3475; J7042; J7050; Q9967; S0028